=== PATIENT | male | born 1960 | race Caucasian/White ===

== ENCOUNTER 2016-09-25 20:21 | Emergency (ER) | payer MEDICAID | END 2016-09-25 23:00 | disposition left against medical advice (07) | LOC: D.ER 20:21 → EDSEX 20:21 → D.ER 23:00 | DX: R20.0 Anesthesia of skin (principal) ==

== ENCOUNTER 2018-02-26 15:33 | Emergency (ER) | payer MEDICAID ==
[~2018-02-26] VITALS: Ht 180.3 cm; Wt 68.2 kg
[2018-02-26 15:51] VITALS: Ht 180.3 cm; Wt 68.2 kg
[2018-02-26] MEDS ORDERED: TORADOL10 MG PO (16:47)
[2018-02-26 17:12] VITALS: BP 160/100
== END 2018-02-26 17:12 | disposition home or self-care (01) ==
LOC: D.ER 15:33
DX: S22.41XA Multiple fractures of ribs, right side, initial encounter for closed fracture (principal); V59.9XXA Occupant (driver) (passenger) of pick-up truck or van injured in unspecified traffic accident, initial encounter; Y93.89 Activity, other specified; Y92.410 Unspecified street and highway as the place of occurrence of the external cause; Z86.73 Personal history of transient ischemic attack (TIA), and cerebral infarction without residual deficits; F17.200 Nicotine dependence, unspecified, uncomplicated

== ENCOUNTER 2019-12-28 13:46 | Emergency (ER) | payer MEDICAID ==
[~2019-12-28] VITALS: Ht 180.3 cm; Wt 68.2 kg
[~2019-12-28 13:46] MED LIST: TORADOL10 MG PO
[2019-12-28 13:48] VITALS: Ht 180.3 cm; Wt 68.2 kg
[2019-12-28 14:32] LABS: BASOPHILS 0.2 % (0-2); EOSINOPHILS 1.8 % (0-7); HEMATOCRIT 46.3 % (42.0-54.0); HEMOGLOBIN 15.4 g/dL (13.5-17.5); IMMATURE GRANULOCYTES 0.3 % (0-5); LYMPHOCYTES 9.6 % (15-50); MCHC 33.3 g/dL (31.0-37.0); MCV 90.1 fL (80.0-100.0); MEAN PLATELET VOLUME 10.7 fL (7.4-10.4); MONOCYTES 10.6 % (2-11); NEUTROPHILS 77.5 % (40-80); PLATELET COUNT 361 10x3/uL (130-400); RBC 5.14 10x6/uL (4.20-6.10); RDW 13.9 % (11.5-14.5); WBC 13.7 10x3/uL (4.8-10.8)
[2019-12-28 14:52] LABS: ALBUMIN 3.6 g/dL (3.4-5.0); ALKALINE PHOSPHATASE 89 U/L (30-120); ALT (SGPT) 14 U/L (10-68); BILIRUBIN - TOTAL 0.44 mg/dL (0.2-1.3); CALC OSMOLALITY 270 mosm/kg (275-300); CALCIUM 8.7 mg/dL (8.5-10.1); CARBON DIOXIDE 30.2 mmol/L (21.0-32.0); CHLORIDE - SERUM 100 mmol/L (98-107); GLUCOSE 103 mg/dL (74-106); PROTEIN - SERUM 8.5 g/dL (6.4-8.2); SODIUM 136 mmol/L (136-145); UREA NITROGEN 10 mg/dL (7-18); eGFR NON AFRICAN AMERICAN 81 mL/min (90-120)
[2019-12-28 15:05] LABS: POTASSIUM - SERUM 2.9 mmol/L (3.5-5.1)
[2019-12-28] MEDS ORDERED: NAPROSYN500 MG PO (16:40)
[2019-12-28] MEDS ORDERED: HYDROCODON-ACE1 EAC7 PO (16:40)
[2019-12-28 19:00] VITALS: BP 146/97
== END 2019-12-28 19:00 | disposition home or self-care (01) ==
LOC: D.ER 13:46
PROVIDERS: Family Medicine
DX: S82.841A Displaced bimalleolar fracture of right lower leg, initial encounter for closed fracture (principal); E86.0 Dehydration; E87.6 Hypokalemia; D72.829 Elevated white blood cell count, unspecified; Z86.73 Personal history of transient ischemic attack (TIA), and cerebral infarction without residual deficits; X50.1XXA Overexertion from prolonged static or awkward postures, initial encounter; Y93.9 Activity, unspecified; Y92.9 Unspecified place or not applicable